=== PATIENT | male | born 1960 | race Caucasian/White ===

== ENCOUNTER → 2019-05-26 | Outpatient (CLI) | payer OTHER ==
[~2019-05-26] MED LIST: ASPI81TA26 PO; CLON0.3D2 TD; FURO20TA2 PO; GABA-843 PO; GLIP10TA PO; KLON1TAB PO; LABE300T2 PO; MAGN400C2 PO; PRIL20CA9 PO; SPIR1TAB34 PO; TELM1TAB18 PO
--- NOTE | 2019-05-26 12:28 | REP ---
Bilateral upper extremity arterial Doppler ultrasound: History: Bilateral subclavian artery ultrasound, evaluate for subclavian steal. The patient reports discrepant blood pressure readings, lower on the left than the right. No prior imaging. Findings: There is minimal plaquing seen in the right upper extremity arteries. Antegrade flow was observed in both vertebral arteries. Arterial Doppler velocities in the right upper extremity are normal with wave forms biphasic. 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 Monophasic waveforms are noted throughout the left upper extremity. Right upper extremity arterial Doppler velocity chart: Proximal CCA 110 cm/S Vertebral 80 cm/S Proximal subclavian 93 Distal subclavian 111 Axillary 131 Distal subclavian arm raised 131 Axillary artery arm raised 159 Left upper extremity arterial Doppler velocity chart: Left CCA proximal 86 cm/S Vertebral 62 Proximal subclavian artery 133/592 Distal subclavian artery 72 Axillary artery 52 Distal subclavian arm raised 35 Axillary artery arm raised 54 Electronically Signed by Orlando Robin MD 05/26/2019 12:19 P
== END ==
LOC: M RAD 09:10
DX: I77.1 Stricture of artery (principal); I72.9 Aneurysm of unspecified site; I10 Essential (primary) hypertension

== ENCOUNTER 2022-01-09 14:36 | Emergency (ER) | payer BC, OTHER ==
[~2022-01-09] VITALS: Ht 182.9 cm; Wt 93.7 kg
[~2022-01-09 14:36] MED LIST changes: +GABA-282 PO; -GABA-843 PO; -LABE300T2 PO; +LABE300T55 PO
[2022-01-09] MEDS ORDERED: ISOVUE-370 76% 100ML VIAL As Ordered ONE (14:48)
[2022-01-09 15:08] LABS: BASO # 0.1 10^3/uL (0.0-0.2); BASO % 0.7 % (0.0-1.0); EOS # 0.1 10^3/uL (0.0-0.5); EOS % 1.5 % (0.0-3.0); HEMATOCRIT 47.7 % (42.0-52.0); HEMOGLOBIN 16.2 g/dl (13.5-17.5); LYMPH % 27.7 % (24.0-44.0); MEAN CORPUSCULAR HEMOGLOBIN 33.4 pg (27.0-33.0); MEAN CORPUSCULAR VOLUME 98.4 fl (80.0-96.0); MONO # 0.5 10^3/uL (0.0-0.8); MONO % 6.8 % (2.0-8.0); NEUTROPHILS # 4.5 10^3/uL (1.5-8.5); NEUTROPHILS % 62.7 % (36.0-66.0); PLATELET COUNT, AUTOMATED 134 10^3/uL (150-450); RED BLOOD COUNT 4.85 10^6/uL (4.30-6.10); WHITE BLOOD COUNT 7.2 10^3/uL (4.0-10.0)
[2022-01-09 15:26] LABS: CK-MB VALUE MASS 4.9 NG/ML (<3.6); MB/CK RELATIVE INDEX 14.41 (< OR =4)
[2022-01-09] MEDS ORDERED: FUROSEMIDE 40MG/4ML VIAL (J1940) IV ONE (15:35)
[2022-01-09] MEDS ORDERED: JANU100T PO (15:36)
[2022-01-09] MEDS ORDERED: CLOP75TA2 PO (15:36)
[2022-01-09] MEDS ORDERED: HYDR12.55 PO (15:36)
[2022-01-09] MEDS ORDERED: OXYC-517 PO (15:36)
[2022-01-09] MEDS ORDERED: GLIP10TA18 PO (15:36)
[2022-01-09] MEDS ORDERED: METF-839 PO (15:36)
[2022-01-09] MEDS ORDERED: oxyCODONE 5MG TAB PO ONE (16:20)
[2022-01-09 16:40] VITALS: BP 185/98
[2022-01-09 16:49] VITALS: BP 185/90
[2022-01-09 16:59] LABS: RSV AMPLIFICATION NEGATIVE (NEGATIVE)
== END 2022-01-09 17:03 | disposition left against medical advice (07) ==
LOC: M ED 14:36
DX: R20.2 Paresthesia of skin (principal); E11.9 Type 2 diabetes mellitus without complications; I10 Essential (primary) hypertension; I73.9 Peripheral vascular disease, unspecified; I25.10 Atherosclerotic heart disease of native coronary artery without angina pectoris; I25.2 Old myocardial infarction; F41.9 Anxiety disorder, unspecified; G62.9 Polyneuropathy, unspecified; M19.91 Primary osteoarthritis, unspecified site; Z95.5 Presence of coronary angioplasty implant and graft; Z87.891 Personal history of nicotine dependence; Z79.899 Other long term (current) drug therapy; Z79.82 Long term (current) use of aspirin; Z79.84 Long term (current) use of oral hypoglycemic drugs; Z79.01 Long term (current) use of anticoagulants
CPT/HCPCS: 70450; 70496; 70498; 71045; 80047; 82550; 82553; 84484; 85025; 85730; 87631; 93005; 93041; 94760; 96374; 99285; J1940; Q9967

== ENCOUNTER → 2022-07-16 | Outpatient (CLI) | payer BC ==
[~2022-07-16] MED LIST changes: +CLOP75TA2 PO; +GLIP10TA18 PO; +HYDR12.55 PO; +JANU100T PO; +METF-839 PO; +OXYC-517 PO
== END ==
LOC: M RAD 14:58
PROVIDERS: ATTEND Surgery Vascular Surgery
DX: I65.29 Occlusion and stenosis of unspecified carotid artery (principal); I73.9 Peripheral vascular disease, unspecified; E08.52 Diabetes mellitus due to underlying condition with diabetic peripheral angiopathy with gangrene; N18.2 Chronic kidney disease, stage 2 (mild); I77.1 Stricture of artery; Z98.890 Other specified postprocedural states; Z89.432 Acquired absence of left foot

== ENCOUNTER 2022-09-29 21:04 | Emergency (ER) | payer BC ==
[~2022-09-29] VITALS: Ht 175.3 cm; Wt 94.0 kg
[2022-09-29 21:20] VITALS: TEMP 97.6
[2022-09-29 21:47] LABS: BASO # 0.1 10^3/uL (0.0-0.2); BASO % 0.8 % (0.0-1.0); EOS # 0.1 10^3/uL (0.0-0.5); EOS % 1.2 % (0.0-3.0); HEMATOCRIT 41.7 % (42.0-52.0); HEMOGLOBIN 14.1 g/dl (13.5-17.5); LYMPH # 2.2 10^3/uL (1.5-5.0); LYMPH % 27.7 % (24.0-44.0); MEAN CORPUSCULAR HEMOGLOBIN 32.6 pg (27.0-33.0); MEAN CORPUSCULAR HGB CONC 33.8 g/dl (32.0-36.5); MEAN CORPUSCULAR VOLUME 96.5 fl (80.0-96.0); MONO # 0.6 10^3/uL (0.0-0.8); MONO % 7.3 % (2.0-8.0); NEUTROPHILS # 4.9 10^3/uL (1.5-8.5); NEUTROPHILS % 62.7 % (36.0-66.0); PLATELET COUNT, AUTOMATED 129 10^3/uL (150-450); RED BLOOD COUNT 4.32 10^6/uL (4.30-6.10); WHITE BLOOD COUNT 7.8 10^3/uL (4.0-10.0)
[2022-09-29] MEDS ORDERED: oxyCODONE 5MG TAB PO ONE (21:55)
[2022-09-29 22:05] LABS: ETHYL ALCOHOL (ETHANOL) 0.166 % (0.000-0.010)
[2022-09-29 22:09] LABS: PROLACTIN 5.68 NG/ML (2.1-17.7)
[2022-09-29 22:14] LABS: ALBUMIN 3.5 G/DL (3.2-5.2); BILIRUBIN,DIRECT 0.3 MG/DL (<0.4); BILIRUBIN,TOTAL 0.8 MG/DL (0.3-1.2); MAGNESIUM LEVEL 0.9 MG/DL (1.8-2.4); PHOSPHORUS LEVEL 3.1 MG/DL (2.4-5.1); TOTAL PROTEIN 6.5 G/DL (5.7-8.2)
[2022-09-29] MEDS ORDERED: NS 1,000 ML IV ONE (22:35)
[2022-09-29] MEDS ORDERED: MAG SULF 1GM/100ML (MAG RUN) 1 GM in IV 1 EA IV ONE ×4 (22:45)
[2022-09-29] MEDS ORDERED: ISOVUE-370 76% 100ML VIAL As Ordered ONE (22:49)
[2022-09-30 01:00] VITALS: BP 148/68
[2022-09-30 01:04] VITALS: O2SAT 96
== END 2022-09-30 02:12 | disposition home or self-care (01) ==
LOC: EDBD 21:04 → M ED 21:04
DX: I65.02 Occlusion and stenosis of left vertebral artery (principal); I74.2 Embolism and thrombosis of arteries of the upper extremities; R55 Syncope and collapse; E11.9 Type 2 diabetes mellitus without complications; I10 Essential (primary) hypertension; K21.9 Gastro-esophageal reflux disease without esophagitis; M54.9 Dorsalgia, unspecified; Z88.8 Allergy status to other drugs, medicaments and biological substances; Z79.899 Other long term (current) drug therapy; Z79.84 Long term (current) use of oral hypoglycemic drugs
CPT/HCPCS: 70450; 70496; 70498; 71045; 80047; 80076; 82077; 82140; 82330; 83605; 83735; 84100; 84146; 85025; 93005; 93041; 94760; 96365; 99285; J3475; Q9967

== ENCOUNTER 2023-09-18 09:39 | Emergency (ER) | payer MEDICARE, BC ==
[~2023-09-18] VITALS: Ht 175.3 cm; Wt 86.4 kg
[~2023-09-18 09:39] MED LIST changes: -KLON1TAB PO; +KLON1TAB13 PO; +LABE300T28 PO; -LABE300T55 PO
[2023-09-18] MEDS ORDERED: ATOR40TA75 PO (09:59)
[2023-09-18] MEDS ORDERED: BUSP5TA (10:02)
[2023-09-18] MEDS ORDERED: OMEP10CASR PO (10:02)
[2023-09-18 12:16] LABS: BASO # 0.1 10^3/uL (0.0-0.2); BASO % 0.7 % (0.0-1.0); EOS # 0.1 10^3/uL (0.0-0.5); EOS % 0.7 % (0.0-3.0); HEMATOCRIT 41.4 % (42.0-52.0); LYMPH # 1.3 10^3/uL (1.5-5.0); LYMPH % 17.8 % (24.0-44.0); MEAN CORPUSCULAR HEMOGLOBIN 32.2 pg (27.0-33.0); MEAN CORPUSCULAR HGB CONC 33.8 g/dl (32.0-36.5); MEAN CORPUSCULAR VOLUME 95.2 fl (80.0-96.0); MONO # 0.5 10^3/uL (0.0-0.8); MONO % 6.9 % (2.0-8.0); NEUTROPHILS # 5.4 10^3/uL (1.5-8.5); NEUTROPHILS % 73.5 % (36.0-66.0); PLATELET COUNT, AUTOMATED 157 10^3/uL (150-450); RED BLOOD COUNT 4.35 10^6/uL (4.30-6.10); WHITE BLOOD COUNT 7.3 10^3/uL (4.0-10.0)
[2023-09-18] MEDS: oxyCODONE 5MG TAB PO ONE (12:33)
[2023-09-18 12:38] LABS: MAGNESIUM LEVEL 1.2 MG/DL (1.8-2.4)
[2023-09-18 12:42] LABS: THYROID STIMULATING HORMONE 5.247 uIU/ML (0.55-4.78)
[2023-09-18] MEDS: MAG SULF 1GM/100ML (MAG RUN) 1 GM in IV 1 EA IV ONE (13:51)
[2023-09-18 14:45] LABS: FREE T4 0.92 NG/DL (0.89-1.76)
[2023-09-18 15:03] VITALS: BP 111/54; TEMP 97.6; O2SAT 95
== END 2023-09-18 15:19 | disposition home or self-care (01) ==
LOC: M ED 09:39
DX: S09.90XA Unspecified injury of head, initial encounter (principal); S20.219A Contusion of unspecified front wall of thorax, initial encounter; S51.002A Unspecified open wound of left elbow, initial encounter; R94.6 Abnormal results of thyroid function studies; E83.42 Hypomagnesemia; W01.10XA Fall on same level from slipping, tripping and stumbling with subsequent striking against unspecified object, initial encounter; Y92.009 Unspecified place in unspecified non-institutional (private) residence as the place of occurrence of the external cause; Y93.01 Activity, walking, marching and hiking; Y99.9 Unspecified external cause status; I25.2 Old myocardial infarction; I10 Essential (primary) hypertension; E11.9 Type 2 diabetes mellitus without complications; K21.9 Gastro-esophageal reflux disease without esophagitis; M54.9 Dorsalgia, unspecified; Z79.84 Long term (current) use of oral hypoglycemic drugs; Z79.899 Other long term (current) drug therapy; Z88.8 Allergy status to other drugs, medicaments and biological substances
CPT/HCPCS: 70450; 71100; 72125; 80047; 83735; 84439; 84443; 85025; 93005; 96374; 99284; J3475

== ENCOUNTER 2023-10-31 17:36 | Emergency (ER) | payer MEDICARE, BC ==
[~2023-10-31] VITALS: Ht 175.3 cm; Wt 82.2 kg
[~2023-10-31 17:36] MED LIST changes: +ATOR40TA75 PO; +BUSP5TA; +OMEP10CASR PO
[2023-10-31] MEDS ORDERED: ISOVUE-370 76% 100ML VIAL As Ordered ONE (18:17)
[2023-10-31] MEDS: NS 1,000 ML IV ONE (18:23)
[2023-10-31 18:28] LABS: BASO # 0.1 10^3/uL (0.0-0.2); BASO % 1.1 % (0.0-1.0); EOS % 0.4 % (0.0-3.0); HEMATOCRIT 39.5 % (42.0-52.0); HEMOGLOBIN 13.9 g/dl (13.5-17.5); LYMPH # 1.3 10^3/uL (1.5-5.0); LYMPH % 17.7 % (24.0-44.0); MEAN CORPUSCULAR HEMOGLOBIN 32.3 pg (27.0-33.0); MEAN CORPUSCULAR HGB CONC 35.2 g/dl (32.0-36.5); MEAN CORPUSCULAR VOLUME 91.9 fl (80.0-96.0); MONO # 0.4 10^3/uL (0.0-0.8); MONO % 4.9 % (2.0-8.0); NEUTROPHILS # 5.6 10^3/uL (1.5-8.5); NEUTROPHILS % 75.5 % (36.0-66.0); PLATELET COUNT, AUTOMATED 161 10^3/uL (150-450); WHITE BLOOD COUNT 7.4 10^3/uL (4.0-10.0)
[2023-10-31 18:51] LABS: LIPASE 38 U/L (12-53)
[2023-10-31 18:52] LABS: AMYLASE 61 U/L (30-118)
[2023-10-31 18:53] LABS: ALBUMIN 3.1 G/DL (3.2-5.2); ALKALINE PHOSPHATASE 206 U/L (46-116); ALT/SGPT 54 U/L (7.0-40); AST/SGOT 324 U/L (<34); BILIRUBIN,DIRECT 0.6 MG/DL (<0.4); BILIRUBIN,TOTAL 1.3 MG/DL (0.3-1.2); BLOOD UREA NITROGEN 16 MG/DL (9-23); CALCIUM LEVEL 9.1 MG/DL (8.3-10.6); CARBON DIOXIDE LEVEL 28 MMOL/L (20-31); CHLORIDE LEVEL 95 MMOL/L (98-107); CK-MB VALUE MASS < 1.0 NG/ML (<3.6); CREATININE FOR GFR 0.98 MG/DL (0.70-1.30); GLOMERULAR FILTRATION RATE > 60.0 (>49); GLUCOSE, FASTING 92 MG/DL (74-106); POTASSIUM SERUM 4.4 MMOL/L (3.5-5.1); SODIUM LEVEL 129 MMOL/L (136-145); TOTAL PROTEIN 6.6 G/DL (5.7-8.2)
[2023-10-31 18:57] LABS: CPK CREATINE PHOSPHOKINASE 34 U/L (46-171); MB/CK RELATIVE INDEX 2.94 (< OR =4)
[2023-10-31 19:41] LABS: INR 1.08; PROTHROMBIN TIME 13.7 SECONDS (12.5-14.5)
[2023-10-31] MEDS: PERCOCET 5MG/325MG TAB PO ONE (20:11)
[2023-10-31 21:52] VITALS: BP 119/60; TEMP 98.1; O2SAT 99
== END 2023-10-31 22:37 | disposition home or self-care (01) ==
LOC: M ED 17:36
DX: K55.1 Chronic vascular disorders of intestine (principal); R94.5 Abnormal results of liver function studies; E11.9 Type 2 diabetes mellitus without complications; I10 Essential (primary) hypertension; I25.10 Atherosclerotic heart disease of native coronary artery without angina pectoris; I25.2 Old myocardial infarction; Z86.73 Personal history of transient ischemic attack (TIA), and cerebral infarction without residual deficits; K21.9 Gastro-esophageal reflux disease without esophagitis; F10.20 Alcohol dependence, uncomplicated; Z79.899 Other long term (current) drug therapy; Z79.84 Long term (current) use of oral hypoglycemic drugs; Z88.8 Allergy status to other drugs, medicaments and biological substances
CPT/HCPCS: 70450; 70496; 70498; 71045; 74177; 80047; 80048; 80076; 81001; 82150; 82550; 82553; 83605; 83690; 84484; 85025; 85610; 85730; 87040; 87486; 87507; 87581; 87633; 87798; 93005; 93041; 94760; 99285; Q9967

== ENCOUNTER 2023-11-23 11:32 | Emergency (ER) | payer MEDICARE, BC ==
[~2023-11-23] VITALS: Ht 175.3 cm; Wt 84.1 kg
[2023-11-23 11:35] VITALS: BP 120/59; TEMP 97.4; O2SAT 97
[2023-11-23 12:41] LABS: BASO # 0.1 10^3/uL (0.0-0.2); EOS % 0.6 % (0.0-3.0); HEMATOCRIT 34.4 % (42.0-52.0); HEMOGLOBIN 11.8 g/dl (13.5-17.5); LYMPH # 0.9 10^3/uL (1.5-5.0); LYMPH % 17.7 % (24.0-44.0); MEAN CORPUSCULAR HEMOGLOBIN 31.3 pg (27.0-33.0); MEAN CORPUSCULAR HGB CONC 34.3 g/dl (32.0-36.5); MEAN CORPUSCULAR VOLUME 91.2 fl (80.0-96.0); MONO # 0.3 10^3/uL (0.0-0.8); MONO % 5.9 % (2.0-8.0); NEUTROPHILS # 3.9 10^3/uL (1.5-8.5); NEUTROPHILS % 74.4 % (36.0-66.0); PLATELET COUNT, AUTOMATED 148 10^3/uL (150-450); RED BLOOD COUNT 3.77 10^6/uL (4.30-6.10); WHITE BLOOD COUNT 5.2 10^3/uL (4.0-10.0)
[2023-11-23 13:09] LABS: LIPASE 27 U/L (12-53)
[2023-11-23 13:12] LABS: ALBUMIN 2.7 G/DL (3.2-5.2); ALKALINE PHOSPHATASE 258 U/L (46-116); ALT/SGPT 66 U/L (7.0-40); AST/SGOT 404 U/L (<34); BILIRUBIN,DIRECT 0.8 MG/DL (<0.4); BILIRUBIN,TOTAL 1.9 MG/DL (0.3-1.2); BLOOD UREA NITROGEN 15 MG/DL (9-23); CALCIUM LEVEL 8.7 MG/DL (8.3-10.6); CARBON DIOXIDE LEVEL 32 MMOL/L (20-31); CHLORIDE LEVEL 103 MMOL/L (98-107); CREATININE FOR GFR 1.12 MG/DL (0.70-1.30); GLOMERULAR FILTRATION RATE > 60.0 (>49); GLUCOSE, FASTING 114 MG/DL (74-106); POTASSIUM SERUM 4.8 MMOL/L (3.5-5.1); SODIUM LEVEL 136 MMOL/L (136-145)
== END 2023-11-23 14:53 | disposition left against medical advice (07) ==
LOC: M ED 11:32
DX: Z53.21 Procedure and treatment not carried out due to patient leaving prior to being seen by health care provider (principal)